=== PATIENT | male | born 1995 ===

== ENCOUNTER 2019-10-09 08:04 | Emergency (ER) | payer OTHER, SELFPAY ==
[2019-10-09] VITALS (7 sets, daily range): BP systolic 126–165; BP diastolic 67–98; PULSE 60–79; RESP 16; TEMP 36.8; O2SAT 97–99; BMI 35.9
--- NOTE | 2019-10-09 08:40 | ED.NAVMDI ---
HPI - Nausea/Vomiting/Diarrhea General Chief complaint: Nausea/Vomiting/Diarrhea Stated complaint: 'whole face cramping up' Time Seen by Provider: 10/09/19 08:16 Source: patient Mode of arrival: Ambulatory Limitations: no limitations History of Present Illness HPI Narrative: cc: Facial spasm HPI: The patient is a 23-year-old male who states that he woke up in the morning and was showering and while he was showering he developed a spasm in the center of his face such that his lips were very tight his eyes were closed and he could hardly see or open his eyes. It lasted for a few seconds. The patient states that he had 1 episode of this several years ago when he had a pin being removed from a bone. He states that he was not drinking alcohol last night but did drink alcohol on the 06 of October. He does not use any drugs but does smoke marijuana periodically. He denies any kidney failure leukemia lymphoma a history of low magnesium low calcium or any seizures. The patient had a head injury 3 years ago with some facial injuries an injury to his right orbit. He has not had blepharospasms or spasms of his face since his head injury. He currently denies any headache or change in vision or diplopia. When I was seeing the patient he was primarily complaining and concerned about the facial spasms. He told the nurse that he had nausea vomiting and diarrhea. However he denied any diarrhea to me. He states that he had some nausea with 1 episode of vomiting but had diffuse abdominal cramps. He denies any fever chills or sweats. He has had no chest pain cough shortness of breath difficulty in breathing. And he has had no troubles urinating. He denies a history of polymyalgia room with attic a hypothyroidism or lupus erythematosus. He has had no history of depression. Related Data Previous Rx's Medication Instructions Recorded cyclobenzaprine 10 mg PO TID PRN #15 tab 10/09/19 dicyclomine 20 mg PO TID #15 tab 10/09/19 naproxen [Naprosyn] 500 mg PO BID PRN #20 tab 10/09/19 ondansetron HCl [Zofran] 4 mg PO Q8H PRN #12 tab 10/09/19 Allergies Allergy/AdvReac Type Severity Reaction Status Date / Time No Known Drug Allergies Allergy Verified 07/06/20 08:23 Patient History alcohol intake frequency: 3 or more drinks per day Substance Use Type: marijuana Exam Narrative Exam Narrative: PHYSICAL EXAM: CONSTITUTIONAL: Awake, Alert, Oriented, Coherent, Cooperative in NAD. Does not appear toxic or ill. Speaks with a monotone and has a blunted flat affect HEAD: AT/NC EENT: PERRL, FROM of eyes, no discharge, on left lateral gaze the patient has a horizontal nystagmus NOSE:No epistaxis or nasal drainage MOUTH:Oral mucosa is moist and pink, posterior pharynx is without erythema or exudate. The patient has no focal facial asymmetry. He is able to puff of both cheeks. He is able to move both sides of his forehead. He has full range of motion of his tongue. He has no asymmetrical smile. NECK: Supple, no obvious JVD, Trachea is midline without stridor, . SPINE: Palpationof the cervical, Thoracic, Lumbar or Sacral spine reveals no gross deformity or tenderness. No CVA tenderness. THORAX: No deformity, retractions, chest wall tenderness. LUNGS: Clear, symmetrical breath sounds without respiratory distress. HEART: Normal heart tones, regular rhythm and rate without murmur. ABDOMEN: Soft, non-tender, without guarding, rebound, rigidity or palpable mass. EXTREMITIES: No edema, deformity, tenderness or cyanosis. SKIN: No rash, bruising, petechiae or purpura. NEURO: Awake, alert, oriented, conversive, cranial nerves II-XII are symmetrical , moves all 4 extremities and is ambulatory. MENTAL HEALTH: The patient has a blunted flat affect and and appears to have a flat emotional status. Initial Vital Signs Initial Vital Signs: Vital Signs Temperature 98.2 F 10/09/19 08:14 Pulse Rate 79 10/09/19 08:14 Respiratory Rate 16 10/09/19 08:14 Blood Pressure 165/98 H 10/09/19 08:14 Pulse Oximetry 98 10/09/19 08:14 Course Course Course Narrative: 1022: Patient feel 100 % enrike. Plan to discharge. Orders Ordered: Discontinued Medications Cyclobenzaprine HCl (Flexeril) 10 mg PO NOW ONE Stop: 10/09/19 08:47 Last Admin: 10/09/19 10:01 Dose: 10 mg Documented by: THANG Dicyclomine HCl (Bentyl) 20 mg PO NOW ONE Stop: 10/09/19 08:47 Last Admin: 10/09/19 10:01 Dose: 20 mg Documented by: THANG Sodium Chloride (Normal Saline 0.9%) 1,000 mls @ 1,000 mls/hr IV BOLUS ONE Stop: 10/09/19 09:45 Last Infusion: 10/09/19 10:42 Dose: 0 mls/hr Documented by: Admin: 10/09/19 09:27 Dose: 1,000 mls/hr Documented by: LUKE Ondansetron HCl (Zofran) 4 mg IV NOW ONE Stop: 10/09/19 08:48 Last Admin: 10/09/19 09:27 Dose: 4 mg Documented by: LUKE Vital Signs Vital signs: Vital Signs - 8 hr 10/09/19 08:14 10/09/19 09:14 10/09/19 09:15 Temperature 98.2 F Pulse Rate 79 60 60 Respiratory Rate 16 Blood Pressure 165/98 H 135/67 Pulse Oximetry 98 99 97 10/09/19 09:30 10/09/19 09:31 10/09/19 10:00 Temperature Pulse Rate 65 65 73 Respiratory Rate Blood Pressure 127/74 126/78 Pulse Oximetry 98 98 99 Discharge Plan Departure Patient Disposition: Home Clinical Impression: Facial spasm Nausea & vomiting Qualifiers: Vomiting type: unspecified Vomiting Intractability: non-intractable Qualified Code(s): R11.2 - Nausea with vomiting, unspecified Discharge Date/Time: 10/09/19 10:43 Instructions: DI for Dehydration -- Adult, DI for Nausea -- Adult, DI for Vomiting -- Adult, DI for Muscle Spasm Activity Restrictions/Additional Instructions: 1. Drink 2-3 4 L of fluid per day to keep yourself hydrated. 2. Follow-up with your primary care physician to be re-evaluated in 48-72 hours. Keep a log and diarrhea of your muscle spasms so that she can taken to your doctor. 3. Take the cyclobenzaprine 10 mg 3 times a day for muscle spasms. 4. Take Naprosyn 500 mg twice a day for any pain and discomfort. 5. Take Zofran for any nausea and vomiting as prescribed. 6. If you develop worsening shortness of breath, chest pain, passing out, fever chills or sweats you need to return to the emergency department. Prescriptions: New ondansetron HCl [Zofran] 4 mg tablet 4 mg PO Q8H PRN (Reason: nausea and vomiting) Qty: 12 RF: 0 naproxen [Naprosyn] 500 mg tablet 500 mg PO BID PRN (Reason: pain) Qty: 20 RF: 0 cyclobenzaprine 10 mg tablet 10 mg PO TID PRN (Reason: muscle spasm) Qty: 15 RF: 0 dicyclomine 20 mg tablet 20 mg PO TID Qty: 15 RF: 0
[2019-10-09] MEDS: SODIUM CHLORIDE 0.9% 1,000 ML 1000 ML IV (09:27)
[2019-10-09] MEDS: ONDANSETRON 4 MG/2 ML INJ IV (09:27)
[2019-10-09] MEDS: CYCLOBENZAPRINE 10 MG TABLET PO (10:01)
[2019-10-09] MEDS: DICYCLOMINE 10 MG CAPSULE 20 MG PO (10:01)
== END 2019-10-09 10:43 | disposition home or self-care (01) ==
PROVIDERS: Emergency Provider Emergency Medicine
DX: G51.39 Clonic hemifacial spasm, unspecified (principal); R11.2 Nausea with vomiting, unspecified; R19.7 Diarrhea, unspecified
CPT/HCPCS: 36415; 96361; 96374; 99284; J2405

== ENCOUNTER → 2021-11-10 11:21 | Outpatient (CLI) | payer OTHER, SELFPAY ==
--- NOTE | 2021-11-10 | DI.RAD.S_ITS ---
PROCEDURE: XR FOOT LT MIN 3V INDICATIONS: PAIN OF LEFT GREAT TOE TECHNIQUE: Three views of the foot were acquired. COMPARISON: [facility], , FOOT 3V LEFT, 02/09/2016, 8:04. FINDINGS: Bones: Decreased mineralization. Lucent planes involving the medial aspect of the navicular and medial cuneiform bones are seen, likely related to remote trauma. No acute fractures. Normal bone alignment. Lucency through the posterior calcaneus of remote external fixation device. Soft tissues: No tibiotalar joint effusion. Achilles tendon appears normal. IMPRESSION: 1. No acute process. 2. Evidence of remote trauma in the medial foot. Dictated by: Alicia Vargas M.D. on 11/10/2021 at 14:05 Approved by: Alicia Vargas M.D. on 11/10/2021 at 14:10
== END ==
PROVIDERS: Referring Provider Physician Assistant; Visit Provider Physician Assistant
DX: M79.675 Pain in left toe(s) (principal)
CPT/HCPCS: 73630